=== PATIENT | female | born 1965 | race Caucasian/White ===

== ENCOUNTER 2025-05-19 14:55 | Emergency (ER) | payer OTHER ==
[~2025-05-19] VITALS: Ht 160 cm; Wt 57.9 kg
[2025-05-19 15:40] LABS: BASOPHILS 0.4 % (0.1-1.2); EOSINOPHILS 1.3 % (0.7-5.8); LYMPHOCYTES 36.5 % (19.3-51.7); MCH 29.8 PG (25.6-32.2); MCHC 34.1 g/dL (32.2-35.5); MCV 87.3 fL (79.4-94.8); MONOCYTES 6.3 % (4.7-12.5); NEUTROPHILS 55.3 % (34.0-71.1); RBC 4.73 M/uL (3.93-5.22)
[2025-05-19 15:58] LABS: ALT (SGPT) 28.0 U/L (14-59); AST (SGOT) 14.0 U/L (15-37); GLOMERULAR FILTRATION RATE,EST 74.0 mL/min (>60); PROTEIN, TOTAL 7.4 g/dL (6.4-8.2); UREA NITROGEN 14.0 mg/dL (7-18)
[2025-05-19] MEDS ORDERED: NORVASC5 MG PO (16:42)
[2025-05-19 17:01] VITALS: BP 146/91
== END 2025-05-19 17:01 | disposition home or self-care (01) ==
LOC: ED 14:55
PROVIDERS: Emergency Medicine
DX: I10 Essential (primary) hypertension (principal); R51.9 Headache, unspecified; Z88.0 Allergy status to penicillin
CPT/HCPCS: 36415; 70450; 80053; 85025; 85651; 86140; 99284-25